=== PATIENT | male | born 1990 | race Caucasian/White ===

== ENCOUNTER 2016-08-02 07:14 | Inpatient (IN) ==
[2016-08-02 07:44] LABS: Bilirubin,Urine Small (Negative); Blood,Urine Negative (Negative); Clarity,Urine Clear (Clear); Color,Urine Dark Yellow (Yellow); Glucose,Urine (UA) Normal (Normal); Ketones,Urine Negative (Negative); Leukocyte Esterase,Urine Negative (Negative); Nitrite,Urine Negative (Negative); PH,Urine 5.5 pH Units (5.0-8.0); Protein,Urine Trace mg/dL (Neg-Trace); Specific Gravity,Urine 1.026 (1.010-1.025); Urobilinogen,Urine Normal (Normal)
[2016-08-02 07:51] LABS: Amphetamine Screen,Urine Negative ng/mL (Cutoff=1000); Barbiturate Screen,Urine Negative ng/mL (Cutoff=200); Benzodiazepines Screen,Urine Negative ng/mL (Cutoff=200); Cannabinoid Screen,Urine Negative ng/mL (Cutoff = 50); Cocaine Screen,Urine Negative ng/mL (Cutoff= 300); Opiate Screen,Urine Negative ng/mL (Cutoff=300); Phencyclidine Screen,Urine Negative ng/mL (Cutoff=25)
[2016-08-02 07:58] LABS: BUN/Creatinine Ratio 14 (6-26); Blood Urea Nitrogen 14 mg/dL (8-26); Calcium 9.2 mg/dL (8.6-10.8); Carbon Dioxide 20 mEq/L (19-29); Chloride 109 mEq/L (98-109); Glucose 141 mg/dL (70-99); Osmolality,Calculated 291 (280-300); Potassium 3.9 mEq/L (3.5-4.5); Sodium 139 mEq/L (136-145); eGFR For African Americans > 60 (> 60); eGFR For Non-African Americans > 60 (> 60)
[2016-08-02 08:01] LABS: Basophils # 0.1 K/mcL (0.0-0.2); Basophils % 0.5 %; Eosinophils # 0.3 K/mcL (0.0-0.6); Hematocrit 46.8 % (37.5-50.1); Hemoglobin 16.4 g/dL (12.9-16.9); Immature Granulocytes % 1.6 % (0-4); Lymphocytes # 2.5 K/mcL (0.6-4.6); Lymphocytes % 27.9 %; Mean Corpuscular Hemoglobin 29.2 pg (28.0-33.3); Mean Corpuscular Volume 83.3 fL (83.0-100.0); Mean Platelet Volume 9.5 fL (9.4-12.4); Monocytes # 0.6 K/mcL (0.0-1.3); Neutrophils # 5.5 K/mcL (1.6-8.9); Platelet Count 256 K/mcL (140-400); Red Blood Count 5.62 M/mcL (4.19-5.50); Red Cell Distribution Width 12.6 % (11.5-14.5)
[2016-08-02 08:02] LABS: Acetaminophen < 1.0 mcg/mL (10-30); Ethanol < 10 mg/dL (0-10); Salicylate < 5.0 mg/dL (15-30)
--- NOTE | 2016-08-02 11:10 | Emergency Department Note ---
Disposition Clinical Impression: Suicidal ideation Depression Qualifiers: Depression Type: unspecified Qualified Code(s): F32.9 - Major depressive disorder, single episode, unspecified Disposition: Admitted As Inpatient Condition: Good Referrals: NO,PCP [Primary Care Provider] - Forms: ED Satisfaction Letter Psych HPI - General Chief Complaint: ED Psychiatric Symptoms Stated Complaint: SI Time Seen by Provider: 08/02/16 07:23 Source: patient Mode of arrival: private vehicle Limitations: no limitations Nursing Notes Reviewed: Yes Vital Signs Reviewed: Yes - History of Present Illness Pt complaint: suicidal ideation, feels depressed Onset (ago): day(s) Duration: constant History of similar episodes: Yes Improves with: none Worsens with: none Context: not taking psychiatric medications, significant life stressor Alleged intoxication: No Associated Psychiatric Symptoms: depression, suicidal ideation Associated symptoms: Reports: denies other symptoms Traumatic symptoms: denies traumatic injury Treatments prior to arrival: none Self harm or harm to others: admits thoughts of self harm, denies having a plan - Related Data Home Medications Medication Instructions Recorded Confirmed ClonazePAM [Klonopin] 2 mg PO BID 06/19/15 08/02/16 Gabapentin [Neurontin] 600 mg PO TID 06/19/15 08/02/16 [place] Carbonate 900 mg PO BID 06/19/15 08/02/16 Omeprazole [PriLOSEC] 20 mg PO BID 08/02/16 08/02/16 Allergies Allergy/AdvReac Type Severity Reaction Status Date / Time No Known Allergies Allergy Verified 08/02/16 07:20 All systems ED: reviewed and negative except as stated. Constitutional: Denies: fever, chills, weakness, weight change, night sweats Eyes: Denies: vision change ENT ED: Denies: throat pain, dysphagia Cardiovascular: Denies: chest pain, palpitations Respiratory: Denies: cough, dyspnea, wheezes Gastrointestinal: Denies: abdominal pain, nausea, vomiting, diarrhea, constipation Musculoskeletal: Denies: joint swelling, arthralgia Integumentary: Denies: rash Neurological: Denies: headache, weakness, numbness, paresthesias, confusion, abnormal gait, vertigo Psychiatric: Reports: as per HPI, depression Endocrine: Denies: fatigue, heat or cold intolerance, polydipsia, polyuria Hematological/Lymphatic: Denies: easy bleeding, easy bruising, lymphadenopathy Past Medical History - Past Medical History Attestation: Yes The following information was validated with the patient. Source: patient Medical history: Reports: no medical history, GERD Psychiatric history: Reports: anxiety, bipolar, depression, previous psychiatric hospitalization - Social History Smoking Status: Current every day smoker Smokeless Tobacco Status: No Alcohol use: Reports: occasionally Drug use: Reports: marijuana Physical Exam - General Limitations: no limitations General appearance: alert, in no apparent distress - Head Head exam: atraumatic, normocephalic, normal inspection - Eye Eye exam: Present: normal appearance, PERRL. Absent: scleral icterus, conjunctival injection, periorbital swelling - ENT ENT exam: mucous membranes moist - Neck Neck exam: Present: normal inspection, full ROM, trachea midline. Absent: meningismus - Chest Chest inspection: Present: normal inspection - Respiratory Respiratory exam: Present: normal lung sounds bilaterally. Absent: respiratory distress, wheezes, stridor, accessory muscle use, prolonged expiratory phase - Cardiovascular Cardiovascular exam: Present: regular rate, normal rhythm, normal heart sounds - Extremities Exam Extremities exam: Present: normal inspection. Absent: pedal edema - Expanded Lower Extremity Exam Gait: observed and normal - Back Exam Back exam: Present: normal inspection - Neurological Exam Neurological exam: Present: alert, oriented X3, CN II-XII intact, normal gait - Psychiatric Psychiatric exam: Present: normal affect, depressed - Skin Skin exam: Present: warm, dry, intact, normal color Course Course Narrative: Patient is depressed and feeling suicidal. He denies trauma, pain or specific plan. He denies HI. He has been off of his medications for about 5 months. He will require 1A consult. Vital Signs Temperature 97.6 F 08/02/16 07:18 Pulse Rate 97 08/02/16 07:18 Respiratory Rate 20 08/02/16 07:18 Blood Pressure 140/90 08/02/16 07:18 O2 Sat by Pulse Oximetry 96 08/02/16 07:18 Temperature 97.6 F 08/02/16 07:18 Pulse Rate 97 08/02/16 07:25 Respiratory Rate 0 08/02/16 11:04 Blood Pressure 0/0 08/02/16 11:04 O2 Sat by Pulse Oximetry 96 08/02/16 07:25 Oxygen Delivery Oxygen Delivery Room Air Psych - Lab Data Result diagrams: 08/02/16 07:35 03/03/17 07:35 Lab Results 08/02/16 08/02/16 08/02/16 Range/Units 07:24 07:25 07:35 WBC 9.1 (4.3-11.1) K/mcL RBC 5.62 H (4.19-5.50) M/mcL Hgb 16.4 (12.9-16.9) g/dL Hct 46.8 (37.5-50.1) % MCV 83.3 (83.0-100.0) fL MCH 29.2 (28.0-33.3) pg MCHC 35.0 (31.6-35.5) g/dL RDW 12.6 (11.5-14.5) % Plt Count 256 (140-400) K/mcL MPV 9.5 (9.4-12.4) fL Immature Gran % 1.6 (0-4) % Seg Neutrophils % 60.0 % Lymphocytes % 27.9 % Monocytes % 7.0 % Eosinophils % 3.0 % Basophils % 0.5 % Neutrophils # 5.5 (1.6-8.9) K/mcL Lymphocytes # 2.5 (0.6-4.6) K/mcL Monocytes # 0.6 (0.0-1.3) K/mcL Eosinophils # 0.3 (0.0-0.6) K/mcL Basophils # 0.1 (0.0-0.2) K/mcL Sodium (136-145) mEq/L Potassium (3.5-4.5) mEq/L Chloride (98-109) mEq/L Carbon Dioxide (19-29) mEq/L BUN (8-26) mg/dL Creatinine (0.72-1.25) mg/dL Est GFR ( Amer) (> 60) Est GFR (Non-Af Amer) (> 60) BUN/Creatinine Ratio (6-26) Glucose (70-99) mg/dL Calculated Osmolality (280-300) Calcium (8.6-10.8) mg/dL Urine Color Dark Yellow (Yellow) Urine Clarity Clear (Clear) Urine pH 5.5 (5.0-8.0) pH Units Ur Specific [place] 1.026 H (1.010-1.025) Urine Protein Trace (Neg-Trace) mg/dL Urine Glucose (UA) Normal (Normal) mg/dL Urine Ketones Negative (Negative) mg/dL Urine Blood Negative (Negative) Urine Nitrite Negative (Negative) Urine Bilirubin Small H (Negative) Urine Urobilinogen Normal (Normal) mg/dL Ur Leukocyte Esterase Negative (Negative) Salicylates (15-30) mg/dL Urine Opiates Screen Negative (Jzvcbd=838) ng/mL Acetaminophen (10-30) mcg/mL Ur Barbiturates Screen Negative (Uluzfb=656) ng/mL Ur Phencyclidine Scrn Negative (Cutoff=25) ng/mL Ur Amphetamines Screen Negative (Sbbqau=4226) ng/mL U Benzodiazepines Scrn Negative (Augcqm=976) ng/mL Urine Cocaine Screen Negative (Cutoff= 300) ng/mL U Marijuana (THC) Screen Negative (Cutoff = 50) ng/mL Ethyl Alcohol (0-10) mg/dL 08/02/16 Range/Units 07:35 WBC (4.3-11.1) K/mcL RBC (4.19-5.50) M/mcL Hgb (12.9-16.9) g/dL Hct (37.5-50.1) % MCV (83.0-100.0) fL MCH (28.0-33.3) pg MCHC (31.6-35.5) g/dL RDW (11.5-14.5) % Plt Count (140-400) K/mcL MPV (9.4-12.4) fL Immature Gran % (0-4) % Seg Neutrophils % % Lymphocytes % % Monocytes % % Eosinophils % % Basophils % % Neutrophils # (1.6-8.9) K/mcL Lymphocytes # (0.6-4.6) K/mcL Monocytes # (0.0-1.3) K/mcL Eosinophils # (0.0-0.6) K/mcL Basophils # (0.0-0.2) K/mcL Sodium 139 (136-145) mEq/L Potassium 3.9 (3.5-4.5) mEq/L Chloride 109 (98-109) mEq/L Carbon Dioxide 20 (19-29) mEq/L BUN 14 (8-26) mg/dL Creatinine 0.98 (0.72-1.25) mg/dL Est GFR ( Amer) > 60 (> 60) Est GFR (Non-Af Amer) > 60 (> 60) BUN/Creatinine Ratio 14 (6-26) Glucose 141 H (70-99) mg/dL Calculated Osmolality 291 (280-300) Calcium 9.2 (8.6-10.8) mg/dL Urine Color (Yellow) Urine Clarity (Clear) Urine pH (5.0-8.0) pH Units Ur Specific [place] (1.010-1.025) Urine Protein (Neg-Trace) mg/dL Urine Glucose (UA) (Normal) mg/dL Urine Ketones (Negative) mg/dL Urine Blood (Negative) Urine Nitrite (Negative) Urine Bilirubin (Negative) Urine Urobilinogen (Normal) mg/dL Ur Leukocyte Esterase (Negative) Salicylates < 5.0 L (15-30) mg/dL Urine Opiates Screen (Fzqyot=205) ng/mL Acetaminophen < 1.0 L (10-30) mcg/mL Ur Barbiturates Screen (Eyhnuz=028) ng/mL Ur Phencyclidine Scrn (Cutoff=25) ng/mL Ur Amphetamines Screen (Bclzyy=7739) ng/mL U Benzodiazepines Scrn (Tdkksr=037) ng/mL Urine Cocaine Screen (Cutoff= 300) ng/mL U Marijuana (THC) Screen (Cutoff = 50) ng/mL Ethyl Alcohol < 10 (0-10) mg/dL Psychiatric Medical Clearance - Medical Clearance Checklist Does the patient have a NEW psychiatric condition?: No Any abnormalities indicating possible medical illness?: No Any history of medical issues?: No Medical History: No Social History Section defined Any abnormal vital signs prior to transfer?: No Current Vitals: Last Vital Signs Temp 97.6 F 08/02/16 07:18 Pulse 97 08/02/16 07:25 Resp 0 08/02/16 11:04 BP 0/0 08/02/16 11:04 Pulse Ox 96 08/02/16 07:25 Is the patient intoxicated or cognitively impaired?: No Psychiatric Lab Panel: Drug Levels and Toxicity 08/02/16 08/02/16 07:24 07:35 Urine Opiates Screen Negative Acetaminophen < 1.0 L Ur Barbiturates Screen Negative Ur Phencyclidine Scrn Negative Ur Amphetamines Screen Negative U Benzodiazepines Scrn Negative Urine Cocaine Screen Negative U Marijuana (THC) Screen Negative Ethyl Alcohol < 10 Any abnormalities on the physical exam?: No Abnormal Labs: Abnormal lab results RBC 5.62 M/mcL (4.19-5.50) H 08/02/16 07:35 Glucose 141 mg/dL (70-99) H 08/02/16 07:35 Ur Specific [place] 1.026 (1.010-1.025) H 08/02/16 07:25 Urine Bilirubin Small (Negative) H 08/02/16 07:25 Salicylates < 5.0 mg/dL (15-30) L 08/02/16 07:35 Acetaminophen < 1.0 mcg/mL (10-30) L 08/02/16 07:35 Does the patient require durable medical equiptment?: No Is the patient ambulatory?: Yes Is the patient a fall risk?: No Has the patient been medically cleared?: Yes Any acute medical condition require Tx prior to transfer?: No Statement of Medical Clearance: I have evaluated the patient, reviewed diagnostic information, and certify that the patient's medical condition is sufficiently stable that transfer to the psychiatric unit does not pose a significant risk of deterioration.
[2016-08-02] MEDS ORDERED: *HR* LORazepam 2 MG/ML VIAL IM PRN (15:59)
[2016-08-02] MEDS ORDERED: Mag Hydrox/Al Hydrox/Simeth 30 ML UDC PO PRN (15:59)
[2016-08-02] MEDS ORDERED: Acetaminophen 325 MG TABLET PO PRN (15:59)
[2016-08-02] MEDS ORDERED: MOM Conc 10 ML UD.LIQ PO PRN (15:59)
[2016-08-02] MEDS ORDERED: *HR* LORazepam 1 MG TABLET PO PRN (15:59)
[2016-08-02] MEDS: Ibuprofen 400 MG TABLET PO PRN (17:42)
[2016-08-02] MEDS: Nicotine 2 MG GUM BC PRN ×2 (17:45→20:14)
[2016-08-02] MEDS: traZODone 50 MG TABLET PO PRN (21:03)
[2016-08-02] MEDS: hydrOXYzine pamoate 25 MG CAPSULE PO PRN (21:03)
[2016-08-03] MEDS: Nicotine 2 MG GUM BC PRN ×4 (09:59→21:39)
--- NOTE | 2016-08-03 12:39 | Psychiatry History & Physical ---
Date of Encounter: 08/03/16 Time of Encounter: 12:20 History of Present Illness Patient Stated Chief Complaint: I am depressed and suicidal Medicare Admission Attestation: For traditional Medicare patients the provided hospital inpatient services are reasonable and necessary and in the case of services not specified as inpatient -only under 42 CFR 419.22 (n), that they are appropriately provided as inpatient services in accordance 42 CFR 412.3. For Critical Access Hospital the patient may reasonably be expected to be discharged or transferred to a hospital within 96 hours after admission to the Critical Access Hospital. Admitted From: Emergency Dept Plans for Post Hospital Care: Home History of Present Illness: Mr. Fontenot is a 26 year old male Was referred for hospitalization for depression and suicidal ideations. Patient is noted to have an extensive history of mental illness. He is diagnosed with bipolar disorder type I. Patient reported that he has been off his medications for 5 months since his outpatient psychiatrist had relocated and he has not been able to see a new psychiatrist. Patient reported that he ran out of his medications because of inability to see a psychiatrist and has been noticing a relapse of his depression for the last few months. He reported that his symptoms of depression and anxiety getting worse over the last few weeks. He reported low mood and anhedonia hopelessness helplessness low energy levels anxiety and nervousness restlessness poor sleep and appetite and recurrent suicidal thoughts and ideations. Patient reported that his depressive and anxiety feelings are getting worse to the point where he has been contemplating on ending his life. He was unable to contract for safety and was posing a threat to himself so it was decided to hospitalize him on a psychiatric unit at [facility] Social Fam HX - Past Medical History Medical history: no medical history, GERD - Past Psychiatric History Psychiatric history: Reports: bipolar, previous psychiatric hospitalization Past psychiatric history details: Patient has extensive history of bipolar disorder. He has had multiple prior psychiatric hospitalizations. His last hospitalization was in January 2016 at [place]. He was receiving outpatient treatment from [facility]. He was fairly stable on lithium and Neurontin and Klonopin. Family psychiatric history: Yes Family Psychiatric History Details: Aunt suffers from bipolar disorder Family History of Suicide: None - Social History Smoking Status: Current every day smoker Smokeless Tobacco Status: No Alcohol use: occasionally Drug use: marijuana Occupational status: unemployed Current living situation: Home, With Family Activity Level: Independent ambulation Recent Out of Country Travel Within the Last 8 Weeks: No Exposure or Possible Exposure to Illness During Travel: No Additional social history: Patient was born and raised in [place]. He reported good childhood. He has one sister. He graduated high school. He is single and has no children currently he is unemployed and residing with parents. He denies any legal issues. Medications & Allergies ClonazePAM [Klonopin] 2 mg PO BID 06/19/15 [History] Gabapentin [Neurontin] 600 mg PO TID 06/19/15 [History] [place] Carbonate 900 mg PO BID 06/19/15 [History] Omeprazole [PriLOSEC] 20 mg PO BID 08/02/16 [History] Allergies No Known Allergies Allergy (Verified 08/02/16 07:20) Review of Systems Psychiatric: Reports: depression, anxiety, abnormal sleep pattern, suicidal ideation, anhedonia, hopelessness, panic attacks Mental Status Exam Patient orientation: Yes Person, Yes Time, Yes Place Level of alertness: Alert Patient appearance: Unkempt, Disheveled Behavior: calm, cooperative Psychomotor activity: Normal Eye contact: Maintains Eye Contact Mood description: Depressed, Anxious Affect description: congruent with mood, constricted, dysphoric, anxious Speech pattern: Normal rate, Normal rhythm, Normal tone Speech volume: Soft/Quiet Thought process: Intact, Linear, Goal Oriented Thought content: Yes Suicidal ideation Perceptual disturbances: No Auditory hallucinations, No Visual hallucinations Attention span: Capable of Focused Attention Memory description: Grossly Intact Patient reliability: Reliable Historian Intelligence estimate: Average Judgment: Fair Insight: Partial Results - Vital Signs Vital signs: Temp Pulse Resp BP Pulse Ox 97.3 F L 78 18 115/79 100 08/03/16 09:00 08/03/16 09:00 08/03/16 09:00 08/03/16 09:00 08/02/16 11:10 - Labs Labs: Laboratory Last Values WBC 9.1 K/mcL (4.3-11.1) 08/02/16 07:35 RBC 5.62 M/mcL (4.19-5.50) H 08/02/16 07:35 Hgb 16.4 g/dL (12.9-16.9) 08/02/16 07:35 Hct 46.8 % (37.5-50.1) 08/02/16 07:35 MCV 83.3 fL (83.0-100.0) 08/02/16 07:35 MCH 29.2 pg (28.0-33.3) 08/02/16 07:35 MCHC 35.0 g/dL (31.6-35.5) 08/02/16 07:35 RDW 12.6 % (11.5-14.5) 08/02/16 07:35 Plt Count 256 K/mcL (140-400) 08/02/16 07:35 MPV 9.5 fL (9.4-12.4) 08/02/16 07:35 Immature Gran % 1.6 % (0-4) 08/02/16 07:35 Seg Neutrophils % 60.0 % 08/02/16 07:35 Lymphocytes % 27.9 % 08/02/16 07:35 Monocytes % 7.0 % 08/02/16 07:35 Eosinophils % 3.0 % 08/02/16 07:35 Basophils % 0.5 % 08/02/16 07:35 Neutrophils # 5.5 K/mcL (1.6-8.9) 08/02/16 07:35 Lymphocytes # 2.5 K/mcL (0.6-4.6) 08/02/16 07:35 Monocytes # 0.6 K/mcL (0.0-1.3) 08/02/16 07:35 Eosinophils # 0.3 K/mcL (0.0-0.6) 08/02/16 07:35 Basophils # 0.1 K/mcL (0.0-0.2) 08/02/16 07:35 Sodium 139 mEq/L (136-145) 08/02/16 07:35 Potassium 3.9 mEq/L (3.5-4.5) 08/02/16 07:35 Chloride 109 mEq/L (98-109) 08/02/16 07:35 Carbon Dioxide 20 mEq/L (19-29) 08/02/16 07:35 BUN 14 mg/dL (8-26) 08/02/16 07:35 Creatinine 0.98 mg/dL (0.72-1.25) 08/02/16 07:35 Est GFR ( Amer) > 60 (> 60) 08/02/16 07:35 Est GFR (Non-Af Amer) > 60 (> 60) 08/02/16 07:35 BUN/Creatinine Ratio 14 (6-26) 08/02/16 07:35 Glucose 141 mg/dL (70-99) H 08/02/16 07:35 Calculated Osmolality 291 (280-300) 08/02/16 07:35 Calcium 9.2 mg/dL (8.6-10.8) 08/02/16 07:35 Urine Color Dark Yellow (Yellow) 08/02/16 07:25 Urine Clarity Clear (Clear) 08/02/16 07:25 Urine pH 5.5 pH Units (5.0-8.0) 08/02/16 07:25 Ur Specific [place] 1.026 (1.010-1.025) H 08/02/16 07:25 Urine Protein Trace mg/dL (Neg-Trace) 08/02/16 07:25 Urine Glucose (UA) Normal mg/dL (Normal) 08/02/16 07:25 Urine Ketones Negative mg/dL (Negative) 08/02/16 07:25 Urine Blood Negative (Negative) 08/02/16 07:25 Urine Nitrite Negative (Negative) 08/02/16 07:25 Urine Bilirubin Small (Negative) H 08/02/16 07:25 Urine Urobilinogen Normal mg/dL (Normal) 08/02/16 07:25 Ur Leukocyte Esterase Negative (Negative) 08/02/16 07:25 Salicylates < 5.0 mg/dL (15-30) L 08/02/16 07:35 Urine Opiates Screen Negative ng/mL (Zehhhr=406) 08/02/16 07:24 Acetaminophen < 1.0 mcg/mL (10-30) L 08/02/16 07:35 Ur Barbiturates Screen Negative ng/mL (Veelvv=625) 08/02/16 07:24 Ur Phencyclidine Scrn Negative ng/mL (Cutoff=25) 08/02/16 07:24 Ur Amphetamines Screen Negative ng/mL (Mjzccr=1658) 08/02/16 07:24 U Benzodiazepines Scrn Negative ng/mL (Hfbuen=851) 08/02/16 07:24 Urine Cocaine Screen Negative ng/mL (Cutoff= 300) 08/02/16 07:24 U Marijuana (THC) Screen Negative ng/mL (Cutoff = 50) 08/02/16 07:24 Ethyl Alcohol < 10 mg/dL (0-10) 08/02/16 07:35 Assessment and Plan (1) Bipolar disorder Current visit: Yes Status: Acute Plan: Admit inpatient for safety and stabilization, Close observation, Suicide Precautions per unit protocol, Encourage participation in unit milieu, Group Therapy, Monitor sleep, Monitor appetite Additional Plan: We will restart the patient's lithium on 600 mg twice a day. We will get a lithium level and adjust the dose accordingly. We will also start the patient on Neurontin 400 mg 3 times a day. We will also start the patient on Klonopin but instead of 2 mg twice a day we will start the patient on 0.5 mg daily. Patient was counseled regarding the side effects and the addictive potential of Klonopin patient is understanding and agreeable with the above medications. Plans for Post Hospital Care: Home Estimated Length of Stay (Days): 3 Qualifiers: Active/Remission status: currently active Current bipolar episode type: depressed Current episode severity: severe Psychotic features: without psychotic features Qualified Code(s): F31.4 - Bipolar disorder, current episode depressed, severe, without psychotic features
[2016-08-03] MEDS: clonazePAM 0.5 MG TABLET PO SCH (13:09)
[2016-08-03] MEDS: Gabapentin 400 MG CAPSULE PO SCH ×2 (14:48→21:38)
[2016-08-03] MEDS: Lithium Carbonate 300 MG CAPSULE PO SCH (21:38)
[2016-08-03] MEDS: traZODone 50 MG TABLET PO PRN (21:38)
[2016-08-04] MEDS: clonazePAM 0.5 MG TABLET PO SCH (08:53)
[2016-08-04] MEDS: Gabapentin 400 MG CAPSULE PO SCH (08:53)
[2016-08-04] MEDS: Lithium Carbonate 300 MG CAPSULE PO SCH ×2 (08:53→20:26)
[2016-08-04] MEDS: Nicotine 2 MG GUM BC PRN ×4 (08:54→18:43)
--- NOTE | 2016-08-04 11:50 | Psychiatry Progress Note ---
Date of Encounter: 08/04/16 Time of Encounter: 11:17 Subjective Interval history: Patient seen and interviewed. Started notice slight improvement in his mood. Suicidal ideations have started to subside. Patient is still endorsing anxiety restlessness and nervousness. He slept better. Tolerating medication changes fairly well. Endorsing tremor shakes palpitations and excessive worrying. Patient is active on the unit and been attending groups and participating in activities. And is encouraged to start working on a safety plan. Review of Systems Psychiatric: Reports: depression, anxiety, abnormal sleep pattern, anhedonia, hopelessness, panic attacks Objective: Exam Patient orientation: Yes Person, Yes Time, Yes Place Level of alertness: Alert Patient appearance: Unkempt, Disheveled Behavior: calm, cooperative Psychomotor activity: Normal Eye contact: Maintains Eye Contact Mood description: Anxious Affect description: congruent with mood, constricted, dysphoric, anxious Speech pattern: Normal rate, Normal rhythm, Normal tone Speech volume: Soft/Quiet Thought process: Intact, Linear, Goal Oriented Thought content: No Suicidal ideation Perceptual disturbances: No Auditory hallucinations, No Visual hallucinations Judgment: Fair Insight: Partial Additional Findings: Endorsing hopelessness and helplessness feelings. Does not have a safety plan. Results - Vital Signs Vital Signs: Temp Pulse Resp BP Pulse Ox 97.4 F L 90 16 111/79 100 08/04/16 09:00 08/04/16 09:00 08/04/16 09:00 08/04/16 09:00 08/02/16 11:10 Assessment and Plan (1) Bipolar disorder Current visit: Yes Status: Acute Plan: Continue hospitalization, Close observation, Suicide Precautions per unit protocol, Encourage participation in unit milieu, Group Therapy, Monitor sleep, Monitor appetite Additional Plan: We will increase Klonopin 1 mg daily. Will check lithium level Friday morning. We will increase the Neurontin. Qualifiers: Active/Remission status: currently active Current bipolar episode type: depressed Current episode severity: severe Psychotic features: without psychotic features Qualified Code(s): F31.4 - Bipolar disorder, current episode depressed, severe, without psychotic features Consult Discharge Plan - Plan Referrals: [facility] [Outside] - 08/07/16 11:00 am (The above appointment is with Anat Gordillo. You will also see Viky Lieberman on 08/30/2016 @ 10:00am.)
[2016-08-04] MEDS: Gabapentin 300 MG CAPSULE PO SCH ×2 (14:52→20:26)
[2016-08-04] MEDS: traZODone 50 MG TABLET PO PRN (20:26)
[2016-08-05] MEDS: clonazePAM 0.5 MG TABLET PO SCH (09:09)
[2016-08-05] MEDS: Nicotine 2 MG GUM BC PRN ×4 (09:10→19:23)
[2016-08-05] MEDS: Gabapentin 300 MG CAPSULE PO SCH ×3 (09:10→20:34)
[2016-08-05] MEDS: Lithium Carbonate 300 MG CAPSULE PO SCH ×2 (09:48→20:35)
--- NOTE | 2016-08-05 14:06 | Psychiatry Progress Note ---
Date of Encounter: 08/05/16 Time of Encounter: 14:03 Subjective Interval history: Patient seen for follow-up. He reports his sleep still an adequate and continued to have occasional anxiety. Otherwise he asked me to increase his gabapentin if possible and use trazodone. Denied any hallucination or suicidal ideation and is compliant with medication and activities. Review of Systems Psychiatric: Reports: depression, anxiety, abnormal sleep pattern, anhedonia, panic attacks Objective: Exam Patient orientation: Yes Person, Yes Time, Yes Place Level of alertness: Alert Patient appearance: Appropriate, Well Groomed Behavior: calm, cooperative Psychomotor activity: Normal Eye contact: Maintains Eye Contact Mood description: Anxious Affect description: congruent with mood, constricted, dysphoric, anxious Speech pattern: Normal rate, Normal rhythm, Normal tone Speech volume: Soft/Quiet Thought process: Intact, Linear, Goal Oriented Thought content: No Suicidal ideation Perceptual disturbances: No Auditory hallucinations, No Visual hallucinations Judgment: Fair Insight: Partial Results - Vital Signs Vital Signs: Temp Pulse Resp BP Pulse Ox 97.2 F L 94 18 116/88 100 08/05/16 08:54 08/05/16 08:54 08/05/16 08:54 08/05/16 08:54 08/02/16 11:10 - Drug Levels and Toxicology Drug Levels and Toxicology: Drug Levels and Toxicity 08/05/16 09:06 [place] 0.3 L - Labs Labs: Laboratory Results - last 24 hr 08/05/16 09:06 [place] 0.3 L Assessment and Plan (1) Bipolar disorder Current visit: Yes Status: Acute Plan: Continue hospitalization, Close observation, Suicide Precautions per unit protocol, Encourage participation in unit milieu, Group Therapy, Monitor sleep, Monitor appetite Additional Plan: We will increase trazodone to 100 mg at bedtime and increase gabapentin to 900 mg 3 times daily. Discussed with patient medication changes and he is agreeable and understand benefits and side effects. Qualifiers: Active/Remission status: currently active Current bipolar episode type: depressed Current episode severity: severe Psychotic features: without psychotic features Qualified Code(s): F31.4 - Bipolar disorder, current episode depressed, severe, without psychotic features Consult Discharge Plan - Plan Referrals: [facility] [Outside] - 08/07/16 11:00 am (The above appointment is with Anat Gordillo. You will also see Viky Lieberman on 08/30/2016 @ 10:00am.)
[2016-08-05] MEDS ORDERED: traZODone 50 MG TABLET PO PRN (14:14)
[2016-08-05] MEDS: hydrOXYzine pamoate 25 MG CAPSULE PO PRN ×2 (14:15→18:39)
[2016-08-05] MEDS: Ibuprofen 400 MG TABLET PO PRN (20:02)
[2016-08-06] MEDS: Nicotine 2 MG GUM BC PRN ×2 (05:28→09:51)
[2016-08-06] MEDS: Gabapentin 300 MG CAPSULE PO SCH (08:35)
[2016-08-06] MEDS: Lithium Carbonate 300 MG CAPSULE PO SCH (08:36)
[2016-08-06] MEDS: clonazePAM 0.5 MG TABLET PO SCH (08:37)
[2016-08-06 08:51] VITALS: BP 110/78
[2016-08-06] MEDS: hydrOXYzine pamoate 25 MG CAPSULE PO PRN (10:00)
--- NOTE | 2016-08-06 11:22 | Discharge Summary ---
Date of Encounter: 08/06/16 Time of Encounter: 11:09 Diagnosis - Discharge Diagnosis (1) Bipolar disorder Status: Acute Qualifiers: Active/Remission status: currently active Current bipolar episode type: depressed Current episode severity: severe Psychotic features: without psychotic features Qualified Code(s): F31.4 - Bipolar disorder, current episode depressed, severe, without psychotic features Medications - Discharge Medications Prescriptions: ClonazePAM [Klonopin] 1 mg PO DAILY #30 tablet Gabapentin [Neurontin] 900 mg PO TID #90 capsule HydrOXYzine Pamoate 25 mg PO TID PRN #60 capsule PRN Reason: Anxiety [place] Carbonate 600 mg PO BID #60 capsule TraZODone 100 mg PO HS PRN #60 tablet PRN Reason: Insomnia Omeprazole [PriLOSEC] 20 mg PO BID 08/02/16 [History] ClonazePAM [Klonopin] 1 mg PO DAILY #30 tablet 08/06/16 [Rx] Gabapentin [Neurontin] 900 mg PO TID #90 capsule 08/06/16 [Rx] HydrOXYzine Pamoate 25 mg PO TID PRN #60 capsule 08/06/16 [Rx] [place] Carbonate 600 mg PO BID #60 capsule 08/06/16 [Rx] TraZODone 100 mg PO HS PRN #60 tablet 08/06/16 [Rx] Allergies No Known Allergies Allergy (Verified 08/02/16 07:20) Results Procedures and tests throughout hospitalization: Completed Lab Orders Category Date Time Status [place] Routine Lab 08/05/16 09:06 Completed Provider Date of admission: 08/02/16 10:50 Primary care physician: PCP NO Discharging clinician: Pastor Peguero Assessment and Plan - Patient/Caregiver Discharge Instructions Activity: resume usual activities as tolerated Diet: regular diet - Follow up Plan Follow up with: [facility] [Outside] - 08/07/16 11:00 am (The above appointment is with Anat Gordillo. You will also see Viky Lieberman on 08/30/2016 @ 10:00am.) Functional capacity at discharge: independent ambulation Overall status at discharge: Stable Disposition: Home, Self-Care Hospital Course Hospital course: Mr. Fontenot is a 26 year old male admitted for evaluation treatment bipolar disorder and depression and patient was noncompliant with his medication for several months prior to admission. For details of the admission please see H&P On the units patient medication will be started including lithium and gabapentin and Klonopin. The respondent well to medication for his lithium level was 0.3 which is subtherapeutic . Prior to discharge patient was medically stable, tolerating medications, denied any suicidal ideation. He participated in groups and activities and he was looking forward to her discharge from follow-up as planned. - Time Spent with Patient Total time spent providing and/or coordinating discharge services: Less than 30 minutes Quality - Multiple Antipsychotics Patient discharged on 2 or more antipsychotic medications: No Procedures - Procedures Procedures: Medication Management, Crisis Stabilization, Supportive Therapy, Group Therapy, Psychoeducational Therapy Mental Status Exam - Mental Status Exam Patient orientation: Yes Person, Yes Time, Yes Place Level of alertness: Alert Patient appearance: Appropriate, Well Groomed Behavior: calm, cooperative Psychomotor activity: Normal Eye contact: Maintains Eye Contact Mood description: Anxious Affect description: congruent with mood, constricted, dysphoric, anxious Speech pattern: Normal rate, Normal rhythm, Normal tone Speech Volume: Soft/Quiet Thought process: Intact, Linear, Goal Oriented Thought Content: No Suicidal ideation Perceptual Disturbances: No Auditory hallucinations, No Visual hallucinations Judgment: Fair Insight: Partial
[2016-08-06] MEDS ORDERED: FLU VACC QS2016-17 36MOS UP/PF 0.5 ML SYRINGE IM ONE (11:52)
== END 2016-08-06 12:35 | disposition home or self-care (01) | DRG 753 ==
LOC: EMEROO 07:14 → SUATTDRO 10:50 → 1ANU 10:50
PROVIDERS: ADMIT Psychiatry & Neurology Psychiatry; ATTEND Psychiatry & Neurology Psychiatry

== ENCOUNTER 2019-04-18 22:19 | Inpatient (IN) ==
[2019-04-18] MEDS ORDERED: *HR* LORazepam 1 MG TABLET PO ONE (22:47)
[2019-04-18 23:05] LABS: Basophils # 0.1 K/mcL (0.0-0.2); Basophils % 0.4 %; Eosinophils # 0.3 K/mcL (0.0-0.6); Eosinophils % 2.1 %; Hematocrit 50.4 % (37.5-50.1); Hemoglobin 17.9 g/dL (12.9-16.9); Immature Granulocytes % 0.6 % (0-4); Lymphocytes # 2.1 K/mcL (0.6-4.6); Lymphocytes % 16.7 %; Mean Corpuscular HGB Conc 35.5 g/dL (31.6-35.5); Mean Corpuscular Hemoglobin 30.8 pg (28.0-33.3); Mean Corpuscular Volume 86.6 fL (83.0-100.0); Mean Platelet Volume 9.6 fL (9.4-12.4); Monocytes # 0.8 K/mcL (0.0-1.3); Neutrophils # 9.5 K/mcL (1.6-8.9); Platelet Count 293 K/mcL (140-400); Red Blood Count 5.82 M/mcL (4.19-5.50); Red Cell Distribution Width 12.9 % (11.5-14.5); Segmented Neutrophils % 74.2 %; White Blood Count 12.8 K/mcL (4.3-11.1)
[2019-04-18 23:07] LABS: Bilirubin,Urine Small (Negative); Blood,Urine Negative (Negative); Clarity,Urine Cloudy (Clear); Color,Urine Dark Yellow (Yellow); Glucose,Urine (UA) Normal (Normal); Ketones,Urine Trace mg/dL (Negative); Leukocyte Esterase,Urine Negative (Negative); Nitrite,Urine Negative (Negative); PH,Urine 5.5 pH Units (5.0-8.0); Protein,Urine Trace mg/dL (Neg-Trace); Urobilinogen,Urine Normal (Normal)
[2019-04-18 23:09] LABS: Bacteria,Urine None Seen per hpf (None-Few); Hyaline Casts,Urine None Seen per lpf (None-Few); Squamous Epithelial Cell,Urine Many per lpf (None-Few)
[2019-04-18 23:30] LABS: Acetaminophen < 10 mcg/mL (10-20); Alanine Aminotransferase 25 Units/L (7-52); Albumin 4.6 g/dL (3.5-5.7); Albumin/Globulin Ratio 1.4 (1.1-2.2); Alkaline Phosphatase 80 Units/L (34-104); Aspartate Amino Transferase 18 Units/L (13-39); BUN/Creatinine Ratio 19 (6-26); Bilirubin,Direct 0.1 mg/dL (0.0-0.2); Bilirubin,Indirect 0.5 mg/dL (0.0-1.0); Bilirubin,Total 0.6 mg/dL (0.3-1.0); Blood Urea Nitrogen 14 mg/dL (6-20); Carbon Dioxide 19 mEq/L (23-29); Chloride 107 mEq/L (98-107); Ethanol < 10 mg/dL (Less than 10); Globulin 3.2 g/dL (2.4-3.5); Glucose 105 mg/dL (70-105); Osmolality,Calculated 283 (280-300); Potassium 3.8 mEq/L (3.5-5.1); Salicylate < 2.5 mg/dL (15.0-30.0); Sodium 136 mEq/L (136-145); Total Protein 7.8 g/dL (6.4-8.9); eGFR For African Americans > 60 (> 60); eGFR For Non-African Americans > 60 (> 60)
[2019-04-18 23:33] LABS: Amphetamine Screen,Urine Negative ng/mL (Cutoff=1000); Barbiturate Screen,Urine Negative ng/mL (Cutoff=200); Benzodiazepines Screen,Urine Negative ng/mL (Cutoff=200); Cannabinoid Screen,Urine Negative ng/mL (Cutoff = 50); Cocaine Screen,Urine Negative ng/mL (Cutoff= 300); Opiate Screen,Urine Negative ng/mL (Cutoff=300); Phencyclidine Screen,Urine Negative ng/mL (Cutoff=25)
[2019-04-18 23:42] LABS: Thyroid Stimulating Hormone 0.911 mcIU/mL (0.340-5.600)
[2019-04-19] MEDS ORDERED: *HR* LORazepam 2 MG/ML VIAL IM PRN (02:06)
[2019-04-19] MEDS ORDERED: Mag Hydrox/Al Hydrox/Simeth 30 ML UDC PO PRN (02:06)
[2019-04-19] MEDS ORDERED: Ibuprofen 400 MG TABLET PO PRN (02:06)
[2019-04-19] MEDS ORDERED: *HR* LORazepam 1 MG TABLET PO PRN (02:06)
[2019-04-19] MEDS ORDERED: traZODone 50 MG TABLET PO PRN (02:06)
[2019-04-19] MEDS ORDERED: MOM Conc 10 ML UD.LIQ PO PRN (02:06)
[2019-04-19] MEDS ORDERED: Haloperidol Lactate 5 MG/ML VIAL IM PRN (02:06)
[2019-04-19] MEDS: hydrOXYzine pamoate 25 MG CAPSULE PO PRN ×3 (02:36→20:54)
[2019-04-19] MEDS: Lithium Carbonate 300 MG CAPSULE PO SCH ×2 (12:11→16:50)
[2019-04-19] MEDS: Nicotine 2 MG GUM BC PRN ×2 (12:12→17:40)
[2019-04-20] MEDS: Nicotine 2 MG GUM BC PRN ×2 (08:59→14:59)
[2019-04-20] MEDS: Lithium Carbonate 300 MG CAPSULE PO SCH ×2 (08:59→17:53)
[2019-04-21 08:43] VITALS: BP 119/83
[2019-04-21] MEDS: Lithium Carbonate 300 MG CAPSULE PO SCH (08:46)
[2019-04-21] MEDS: Nicotine 2 MG GUM BC PRN (08:48)
[2019-04-21] MEDS ORDERED: FLU Vac QV 19-20 (6Month+)/PF 0.5 ML SYRINGE IM ONE (09:29)
== END 2019-04-21 11:10 | disposition home or self-care (01) | DRG 885 ==
LOC: EMEROOARM 22:19 → 1ANU 04-19 01:38
PROVIDERS: ADMIT Psychiatry & Neurology Psychiatry; ATTEND Psychiatry & Neurology Psychiatry

== ENCOUNTER 2019-07-07 02:10 | Inpatient (IN) ==
[2019-07-07 02:53] LABS: Bilirubin,Urine Negative (Negative); Blood,Urine Negative (Negative); Clarity,Urine Clear (Clear); Color,Urine Yellow (Yellow); Glucose,Urine (UA) Normal (Normal); Ketones,Urine Negative (Negative); Leukocyte Esterase,Urine Negative (Negative); Nitrite,Urine Negative (Negative); PH,Urine 6.5 pH Units (5.0-8.0); Protein,Urine Negative (Neg-Trace); Specific Gravity,Urine 1.029 (1.010-1.025); Urobilinogen,Urine Normal (Normal)
[2019-07-07 02:54] LABS: Basophils # 0.1 K/mcL (0.0-0.2); Basophils % 0.6 %; Eosinophils # 0.3 K/mcL (0.0-0.6); Hematocrit 46.9 % (37.5-50.1); Hemoglobin 16.1 g/dL (12.9-16.9); Immature Granulocytes % 1.2 % (0-4); Lymphocytes # 3.4 K/mcL (0.6-4.6); Lymphocytes % 32.2 %; Mean Corpuscular HGB Conc 34.3 g/dL (31.6-35.5); Mean Corpuscular Hemoglobin 29.4 pg (28.0-33.3); Mean Corpuscular Volume 85.7 fL (83.0-100.0); Mean Platelet Volume 9.3 fL (9.4-12.4); Monocytes # 0.6 K/mcL (0.0-1.3); Monocytes % 5.4 %; Neutrophils # 6.1 K/mcL (1.6-8.9); Platelet Count 303 K/mcL (140-400); Red Blood Count 5.47 M/mcL (4.19-5.50); Red Cell Distribution Width 13.1 % (11.5-14.5); Segmented Neutrophils % 57.6 %; White Blood Count 10.6 K/mcL (4.3-11.1)
[2019-07-07 03:03] LABS: Amphetamine Screen,Urine Negative ng/mL (Cutoff=1000); Barbiturate Screen,Urine Negative ng/mL (Cutoff=200); Benzodiazepines Screen,Urine Negative ng/mL (Cutoff=200); Cannabinoid Screen,Urine Negative ng/mL (Cutoff = 50); Cocaine Screen,Urine Negative ng/mL (Cutoff= 300); Opiate Screen,Urine Negative ng/mL (Cutoff=300); Phencyclidine Screen,Urine Negative ng/mL (Cutoff=25)
[2019-07-07 03:13] LABS: Acetaminophen < 10 mcg/mL (10-20); BUN/Creatinine Ratio 33 (6-26); Blood Urea Nitrogen 22 mg/dL (6-20); Calcium 9.8 mg/dL (8.6-10.3); Carbon Dioxide 21 mEq/L (23-29); Chloride 108 mEq/L (98-107); Ethanol < 10 mg/dL (Less than 10); Glucose 103 mg/dL (70-105); Osmolality,Calculated 286 (280-300); Potassium 3.9 mEq/L (3.5-5.1); Salicylate < 2.5 mg/dL (15.0-30.0); Sodium 136 mEq/L (136-145); eGFR For African Americans > 60 (> 60); eGFR For Non-African Americans > 60 (> 60)
[2019-07-07] MEDS ORDERED: MOM Conc 10 ML UD.LIQ PO PRN (05:10)
[2019-07-07] MEDS ORDERED: hydrOXYzine pamoate 25 MG CAPSULE PO PRN (05:10)
[2019-07-07] MEDS ORDERED: Acetaminophen 325 MG TABLET PO PRN (05:10)
[2019-07-07] MEDS ORDERED: QUEtiapine Fumarate 25 MG TABLET PO PRN (05:10)
[2019-07-07] MEDS ORDERED: Mag Hydrox/Al Hydrox/Simeth 30 ML UDC PO PRN (05:10)
[2019-07-07] MEDS ORDERED: *HR* LORazepam 2 MG/ML VIAL IM PRN (05:10)
[2019-07-07] MEDS ORDERED: Haloperidol Lactate 5 MG/ML VIAL IM PRN (05:10)
[2019-07-07] MEDS ORDERED: *HR* LORazepam 1 MG TABLET PO PRN (05:10)
[2019-07-07] MEDS: BuPROPion XL (24 HR) 150 MG TABLET PO SCH (11:37)
[2019-07-07] MEDS: Lithium Carbonate 300 MG CAPSULE PO SCH ×2 (11:37→21:05)
[2019-07-07] MEDS: Nicotine 2 MG GUM BC PRN (13:04)
[2019-07-08] MEDS: BuPROPion XL (24 HR) 150 MG TABLET PO SCH (08:44)
[2019-07-08] MEDS: Lithium Carbonate 300 MG CAPSULE PO SCH ×2 (08:44→21:17)
[2019-07-08] MEDS: Nicotine 2 MG GUM BC PRN (08:46)
[2019-07-09] MEDS: Lithium Carbonate 300 MG CAPSULE PO SCH (09:48)
[2019-07-09] MEDS: BuPROPion XL (24 HR) 150 MG TABLET PO SCH (09:49)
[2019-07-09] MEDS: Nicotine 2 MG GUM BC PRN (10:19)
[2019-07-09 10:23] VITALS: BP 114/80
== END 2019-07-09 13:30 | disposition home or self-care (01) | DRG 885 ==
LOC: EMEROOARM 02:10 → 1ANU 02:10
PROVIDERS: ADMIT Psychiatry & Neurology Psychiatry; ATTEND Psychiatry & Neurology Psychiatry

== ENCOUNTER 2019-11-16 05:16 | Inpatient (IN) ==
[2019-11-16 05:39] LABS: Bilirubin,Urine Small (Negative); Blood,Urine Negative (Negative); Clarity,Urine Clear (Clear); Color,Urine Dark Yellow (Yellow); Glucose,Urine (UA) Normal (Normal); Ketones,Urine 15 mg/dL (Negative); Leukocyte Esterase,Urine Negative (Negative); Nitrite,Urine Negative (Negative); Protein,Urine Negative (Neg-Trace); Specific Gravity,Urine > 1.030 (1.010-1.025); Urobilinogen,Urine Normal (Normal)
[2019-11-16 05:44] LABS: Basophils # 0.1 K/mcL (0.0-0.2); Basophils % 0.7 %; Eosinophils # 0.2 K/mcL (0.0-0.6); Eosinophils % 2.9 %; Hemoglobin 15.7 g/dL (12.9-16.9); Immature Granulocytes % 0.5 % (0-4); Lymphocytes # 2.5 K/mcL (0.6-4.6); Lymphocytes % 33.7 %; Mean Corpuscular HGB Conc 33.4 g/dL (31.6-35.5); Mean Corpuscular Hemoglobin 28.3 pg (28.0-33.3); Mean Corpuscular Volume 84.7 fL (83.0-100.0); Mean Platelet Volume 8.8 fL (9.4-12.4); Monocytes # 0.7 K/mcL (0.0-1.3); Monocytes % 9.6 %; Neutrophils # 3.9 K/mcL (1.6-8.9); Platelet Count 246 K/mcL (140-400); Red Blood Count 5.55 M/mcL (4.19-5.50); Red Cell Distribution Width 12.5 % (11.5-14.5); Segmented Neutrophils % 52.6 %; White Blood Count 7.5 K/mcL (4.3-11.1)
[2019-11-16 06:07] LABS: Acetaminophen < 10 mcg/mL (10-20); BUN/Creatinine Ratio 21 (6-26); Blood Urea Nitrogen 17 mg/dL (6-20); Calcium 9.5 mg/dL (8.6-10.3); Carbon Dioxide 23 mEq/L (23-29); Chloride 105 mEq/L (98-107); Ethanol < 10 mg/dL (Less than 10); Glucose 97 mg/dL (70-105); Osmolality,Calculated 283 (280-300); Potassium 3.8 mEq/L (3.5-5.1); Salicylate < 2.5 mg/dL (15.0-30.0); Sodium 136 mEq/L (136-145); eGFR For African Americans > 60 (> 60); eGFR For Non-African Americans > 60 (> 60)
[2019-11-16 06:10] LABS: Amphetamine Screen,Urine Negative ng/mL (Cutoff=1000); Barbiturate Screen,Urine Negative ng/mL (Cutoff=200); Benzodiazepines Screen,Urine Negative ng/mL (Cutoff=200); Cannabinoid Screen,Urine Negative ng/mL (Cutoff = 50); Cocaine Screen,Urine Negative ng/mL (Cutoff= 300); Opiate Screen,Urine Negative ng/mL (Cutoff=300); Phencyclidine Screen,Urine Negative ng/mL (Cutoff=25)
[2019-11-16] MEDS ORDERED: Mag Hydrox/Al Hydrox/Simeth 30 ML UDC PO PRN (08:29)
[2019-11-16] MEDS ORDERED: MOM Conc 10 ML UD.LIQ PO PRN (08:29)
[2019-11-16] MEDS ORDERED: Haloperidol Lactate 5 MG/ML VIAL IM PRN (08:29)
[2019-11-16] MEDS ORDERED: haloperidoL 5 MG TABLET PO PRN (08:29)
[2019-11-16] MEDS ORDERED: *HR* LORazepam 2 MG/ML VIAL IM PRN (08:29)
[2019-11-16] MEDS ORDERED: *HR* LORazepam 1 MG TABLET PO PRN (08:29)
[2019-11-16] MEDS ORDERED: Vitamin B Complex/Vit C/Vit E 1 EACH TABLET PO SCH (09:00)
[2019-11-16] MEDS: Acetaminophen 325 MG TABLET PO PRN (10:49)
[2019-11-16] MEDS: hydrOXYzine pamoate 25 MG CAPSULE PO PRN ×2 (10:49→22:23)
[2019-11-16] MEDS: Lithium Carbonate ER 300 MG TABLET.ER PO SCH ×2 (10:50→22:23)
[2019-11-16] MEDS: BuPROPion XL (24 HR) 150 MG TABLET PO SCH (10:51)
[2019-11-16] MEDS: Nicotine 2 MG GUM BC PRN ×2 (13:31→19:48)
[2019-11-16] MEDS: traZODone 50 MG TABLET PO PRN (22:23)
[2019-11-17] MEDS: Lithium Carbonate ER 300 MG TABLET.ER PO SCH ×2 (08:42→21:39)
[2019-11-17] MEDS: BuPROPion XL (24 HR) 150 MG TABLET PO SCH (08:43)
[2019-11-17] MEDS: Nicotine 2 MG GUM BC PRN ×2 (12:56→15:28)
[2019-11-17] MEDS: traZODone 50 MG TABLET PO PRN (21:39)
[2019-11-17] MEDS: hydrOXYzine pamoate 25 MG CAPSULE PO PRN (21:39)
[2019-11-18] MEDS: BuPROPion XL (24 HR) 150 MG TABLET PO SCH (09:06)
[2019-11-18] MEDS: Lithium Carbonate ER 300 MG TABLET.ER PO SCH ×2 (09:06→21:13)
[2019-11-18] MEDS: Nicotine 2 MG GUM BC PRN ×3 (09:33→18:30)
[2019-11-18] MEDS: hydrOXYzine pamoate 25 MG CAPSULE PO PRN (13:09)
[2019-11-18] MEDS: Acetaminophen 325 MG TABLET PO PRN (18:30)
[2019-11-18] MEDS: traZODone 50 MG TABLET PO PRN (21:56)
[2019-11-19] MEDS: Lithium Carbonate ER 300 MG TABLET.ER PO SCH ×2 (09:22→21:39)
[2019-11-19] MEDS: BuPROPion XL (24 HR) 150 MG TABLET PO SCH (09:22)
[2019-11-19] MEDS: Nicotine 2 MG GUM BC PRN ×3 (09:42→17:38)
[2019-11-19] MEDS: hydrOXYzine pamoate 25 MG CAPSULE PO PRN (12:33)
[2019-11-19] MEDS: traZODone 50 MG TABLET PO PRN (21:39)
[2019-11-20] MEDS: Lithium Carbonate ER 300 MG TABLET.ER PO SCH (09:32)
[2019-11-20] MEDS: BuPROPion XL (24 HR) 150 MG TABLET PO SCH (09:32)
[2019-11-20 09:37] VITALS: BP 123/86
== END 2019-11-20 10:20 | disposition home or self-care (01) | DRG 753 ==
LOC: EMEROOARM 05:16 → 1ANU 08:26
PROVIDERS: ADMIT Psychiatry & Neurology Psychiatry; ATTEND Psychiatry & Neurology Psychiatry

== ENCOUNTER 2020-10-09 20:00 | Inpatient (IN) ==
[2020-10-09 20:24] LABS: Bilirubin,Urine Negative (Negative); Blood,Urine Negative (Negative); Clarity,Urine Clear (Clear); Color,Urine Light-Yellow (Yellow); Glucose,Urine (UA) Normal (Normal); Ketones,Urine Negative (Negative); Leukocyte Esterase,Urine Negative (Negative); Nitrite,Urine Negative (Negative); Protein,Urine Negative (Neg-Trace); Urobilinogen,Urine Normal (Normal)
[2020-10-09 20:32] LABS: Amphetamine Screen,Urine Negative ng/mL (Cutoff=1000); Barbiturate Screen,Urine Negative ng/mL (Cutoff=200); Benzodiazepines Screen,Urine Negative ng/mL (Cutoff=200); Cannabinoid Screen,Urine Negative ng/mL (Cutoff = 50); Cocaine Screen,Urine Negative ng/mL (Cutoff= 300); Opiate Screen,Urine Negative ng/mL (Cutoff=300); Phencyclidine Screen,Urine Negative ng/mL (Cutoff=25)
[2020-10-09 20:41] LABS: Basophils # 0.1 K/mcL (0.0-0.2); Basophils % 0.8 %; Eosinophils # 0.2 K/mcL (0.0-0.6); Eosinophils % 2.4 %; Hematocrit 43.7 % (37.5-50.1); Hemoglobin 14.7 g/dL (12.9-16.9); Lymphocytes # 1.6 K/mcL (0.6-4.6); Lymphocytes % 22.1 %; Mean Corpuscular HGB Conc 33.6 g/dL (31.6-35.5); Mean Corpuscular Hemoglobin 29.1 pg (28.0-33.3); Mean Corpuscular Volume 86.4 fL (83.0-100.0); Mean Platelet Volume 8.7 fL (9.4-12.4); Monocytes # 0.7 K/mcL (0.0-1.3); Monocytes % 9.6 %; Neutrophils # 4.6 K/mcL (1.6-8.9); Platelet Count 230 K/mcL (140-400); Red Blood Count 5.06 M/mcL (4.19-5.50); Red Cell Distribution Width 12.5 % (11.5-14.5); Segmented Neutrophils % 64.1 %; White Blood Count 7.2 K/mcL (4.3-11.1)
[2020-10-09 20:58] LABS: Acetaminophen < 10 mcg/mL (10-20); BUN/Creatinine Ratio 14 (6-26); Blood Urea Nitrogen 11 mg/dL (6-20); Calcium 9.4 mg/dL (8.6-10.3); Carbon Dioxide 21 mEq/L (23-29); Chloride 108 mEq/L (98-107); Ethanol < 10 mg/dL (Less than 10); Glucose 106 mg/dL (70-105); Osmolality,Calculated 284 (280-300); Potassium 3.8 mEq/L (3.5-5.1); Salicylate < 2.5 mg/dL (15.0-30.0); Sodium 137 mEq/L (136-145); eGFR For African Americans > 60 (> 60); eGFR For Non-African Americans > 60 (> 60)
[2020-10-09] MEDS ORDERED: Lithium Carbonate ER 450 MG TABLET.ER PO SCH (23:45)
[2020-10-09] MEDS ORDERED: risperiDONE 1 MG TABLET PO SCH (23:45)
[2020-10-09] MEDS ORDERED: Gabapentin 300 MG CAPSULE PO SCH (23:45)
[2020-10-09] MEDS ORDERED: hydrOXYzine pamoate 25 MG CAPSULE PO PRN (23:48)
[2020-10-09] MEDS ORDERED: traZODone 50 MG TABLET PO PRN (23:49)
[2020-10-10] MEDS: Lithium Carbonate ER 450 MG TABLET.ER PO SCH ×3 (01:59→20:43)
[2020-10-10] MEDS: risperiDONE 1 MG TABLET PO SCH ×3 (01:59→20:44)
[2020-10-10] MEDS: Gabapentin 300 MG CAPSULE PO SCH ×4 (01:59→20:44)
[2020-10-10] MEDS: BuPROPion XL (24 HR) 150 MG TABLET PO SCH (09:54)
[2020-10-10] MEDS: Nicotine 2 MG GUM BC PRN (13:40)
[2020-10-10] MEDS ORDERED: traZODone 50 MG TABLET PO PRN (15:39)
[2020-10-10] MEDS ORDERED: Acetaminophen 325 MG TABLET PO PRN (15:53)
[2020-10-10] MEDS ORDERED: Haloperidol Lactate 5 MG/ML VIAL IM PRN (15:53)
[2020-10-10] MEDS ORDERED: haloperidoL 5 MG TABLET PO PRN (15:53)
[2020-10-10] MEDS ORDERED: MOM Conc 10 ML UD.LIQ PO PRN (15:53)
[2020-10-10] MEDS ORDERED: *HR* LORazepam 1 MG TABLET PO PRN (15:53)
[2020-10-11] MEDS: BuPROPion XL (24 HR) 150 MG TABLET PO SCH (09:03)
[2020-10-11] MEDS: risperiDONE 1 MG TABLET PO SCH (09:07)
[2020-10-11] MEDS: Lithium Carbonate ER 450 MG TABLET.ER PO SCH (09:07)
[2020-10-11 09:30] VITALS: BP 126/83
[2020-10-11] MEDS: Nicotine 2 MG GUM BC PRN ×2 (11:04→16:00)
[2020-10-11] MEDS: Gabapentin 300 MG CAPSULE PO SCH ×2 (11:45→14:55)
== END 2020-10-11 18:05 | disposition home or self-care (01) | DRG 753 ==
LOC: EMEROOARM 20:00 → 1ANU 20:00
PROVIDERS: ADMIT Student in an Organized Health Care Education/Training Program; ATTEND Student in an Organized Health Care Education/Training Program

== ENCOUNTER 2021-04-08 22:05 | Inpatient (IN) ==
[2021-04-08 22:45] LABS: Bilirubin,Urine Negative (Negative); Blood,Urine Negative (Negative); Clarity,Urine Clear (Clear); Color,Urine Light-Yellow (Yellow); Glucose,Urine (UA) Normal (Normal); Ketones,Urine Negative (Negative); Leukocyte Esterase,Urine Negative (Negative); Nitrite,Urine Negative (Negative); Protein,Urine Trace mg/dL (Neg-Trace); Specific Gravity,Urine 1.017 (1.010-1.025); Urobilinogen,Urine Normal (Normal)
[2021-04-08 22:47] LABS: Basophils # 0.1 K/mcL (0.0-0.2); Basophils % 0.5 %; Eosinophils # 0.3 K/mcL (0.0-0.6); Eosinophils % 2.7 %; Hematocrit 45.4 % (37.5-50.1); Hemoglobin 15.3 g/dL (12.9-16.9); Lymphocytes # 2.5 K/mcL (0.6-4.6); Lymphocytes % 22.8 %; Mean Corpuscular HGB Conc 33.7 g/dL (31.6-35.5); Mean Corpuscular Hemoglobin 28.9 pg (28.0-33.3); Mean Corpuscular Volume 85.7 fL (83.0-100.0); Mean Platelet Volume 9.2 fL (9.4-12.4); Monocytes # 0.9 K/mcL (0.0-1.3); Monocytes % 7.9 %; Neutrophils # 7.2 K/mcL (1.6-8.9); Platelet Count 256 K/mcL (140-400); Red Cell Distribution Width 12.4 % (11.5-14.5); Segmented Neutrophils % 65.1 %; White Blood Count 11.1 K/mcL (4.3-11.1)
[2021-04-08 22:55] LABS: Amphetamine Screen,Urine Negative ng/mL (Cutoff=1000); Barbiturate Screen,Urine Negative ng/mL (Cutoff=200); Benzodiazepines Screen,Urine Negative ng/mL (Cutoff=200); Cannabinoid Screen,Urine Negative ng/mL (Cutoff = 50); Cocaine Screen,Urine Negative ng/mL (Cutoff= 300); Opiate Screen,Urine Negative ng/mL (Cutoff=300); Phencyclidine Screen,Urine Negative ng/mL (Cutoff=25)
[2021-04-08 23:11] LABS: Acetaminophen < 10 mcg/mL (10-20); BUN/Creatinine Ratio 15 (6-26); Blood Urea Nitrogen 14 mg/dL (6-20); Calcium 9.5 mg/dL (8.6-10.3); Carbon Dioxide 24 mEq/L (23-29); Chloride 103 mEq/L (98-107); Ethanol < 10 mg/dL (Less than 10); Glucose 101 mg/dL (70-105); Osmolality,Calculated 281 (280-300); Potassium 3.7 mEq/L (3.5-5.1); Salicylate < 2.5 mg/dL (15.0-30.0); Sodium 135 mEq/L (136-145); eGFR For African Americans > 60 (> 60); eGFR For Non-African Americans > 60 (> 60)
[2021-04-09 02:20] LABS: Influenza A PCR Negative (Negative); Influenza B PCR Negative (Negative); Resp. Syncytial Virus PCR Negative (Negative)
[2021-04-09 02:22] LABS: SARS-CoV-2 by PCR (In House) Negative (Negative)
[2021-04-09] MEDS ORDERED: Haloperidol Lactate 5 MG/ML VIAL IM PRN (02:23)
[2021-04-09] MEDS ORDERED: *HR* LORazepam 1 MG TABLET PO PRN (02:23)
[2021-04-09] MEDS ORDERED: Acetaminophen 325 MG TABLET PO PRN (02:23)
[2021-04-09] MEDS ORDERED: *HR* LORazepam 2 MG/ML VIAL IM PRN (02:23)
[2021-04-09] MEDS ORDERED: haloperidoL 5 MG TABLET PO PRN (02:23)
[2021-04-09] MEDS ORDERED: Ibuprofen 400 MG TABLET PO PRN (02:23)
[2021-04-09] MEDS: BuPROPion XL (24 HR) 150 MG TABLET PO SCH (08:31)
[2021-04-09] MEDS: Gabapentin 400 MG CAPSULE PO SCH ×3 (08:32→21:47)
[2021-04-09] MEDS: risperiDONE 1 MG TABLET PO SCH ×2 (08:32→21:48)
[2021-04-09] MEDS: Lithium Carbonate ER 450 MG TABLET.ER PO SCH ×2 (08:32→21:47)
[2021-04-09] MEDS: Nicotine 2 MG GUM BC PRN ×2 (11:03→17:26)
[2021-04-09] MEDS ORDERED: Mag Hydrox/Al Hydrox/Simeth 30 ML UDC PO PRN (13:09)
[2021-04-09] MEDS: hydrOXYzine pamoate 25 MG CAPSULE PO PRN ×2 (13:30→21:47)
[2021-04-09] MEDS: traZODone 50 MG TABLET PO PRN (21:47)
[2021-04-10] MEDS: Gabapentin 400 MG CAPSULE PO SCH ×3 (08:53→20:43)
[2021-04-10] MEDS: risperiDONE 1 MG TABLET PO SCH ×2 (08:53→20:42)
[2021-04-10] MEDS: BuPROPion XL (24 HR) 150 MG TABLET PO SCH (08:54)
[2021-04-10] MEDS: Lithium Carbonate ER 450 MG TABLET.ER PO SCH ×2 (08:54→20:43)
[2021-04-10 09:37] VITALS: O2SAT 96
[2021-04-10] MEDS: Nicotine 2 MG GUM BC PRN ×2 (10:59→15:55)
[2021-04-10] MEDS: traZODone 50 MG TABLET PO PRN (20:45)
[2021-04-11] MEDS: Gabapentin 400 MG CAPSULE PO SCH ×2 (08:21→14:01)
[2021-04-11] MEDS: Lithium Carbonate ER 450 MG TABLET.ER PO SCH (08:21)
[2021-04-11] MEDS: risperiDONE 1 MG TABLET PO SCH (08:22)
[2021-04-11] MEDS: BuPROPion XL (24 HR) 150 MG TABLET PO SCH (08:22)
[2021-04-11 08:36] VITALS: BP 138/89; PULSE 97; TEMP 98.4
[2021-04-11] MEDS: Nicotine 2 MG GUM BC PRN ×2 (09:21→14:08)
[2021-04-11] MEDS ORDERED: FLU Vac QV 21-22 (6Month+)/PF 0.5 ML SYRINGE IM ONE (09:36)
== END 2021-04-11 17:50 | disposition home or self-care (01) | DRG 753 ==
LOC: EMEROOARM 22:05 → 1ANU 04-09 02:34
PROVIDERS: ADMIT Psychiatry & Neurology Psychiatry; ATTEND Psychiatry & Neurology Psychiatry

== ENCOUNTER 2021-09-23 12:45 | Inpatient (IN) ==
[2021-09-23 13:28] LABS: Basophils # 0.1 K/mcL (0.0-0.2); Eosinophils # 0.3 K/mcL (0.0-0.6); Eosinophils % 2.4 %; Hematocrit 47.7 % (37.5-50.1); Hemoglobin 16.2 g/dL (12.9-16.9); Immature Granulocytes % 2.9 % (0-4); Lymphocytes # 2.1 K/mcL (0.6-4.6); Mean Corpuscular Hemoglobin 29.2 pg (28.0-33.3); Mean Corpuscular Volume 85.9 fL (83.0-100.0); Monocytes # 0.6 K/mcL (0.0-1.3); Monocytes % 5.4 %; Neutrophils # 7.7 K/mcL (1.6-8.9); Platelet Count 327 K/mcL (140-400); Red Blood Count 5.55 M/mcL (4.19-5.50); Red Cell Distribution Width 13.1 % (11.5-14.5); Segmented Neutrophils % 69.3 %; White Blood Count 11.1 K/mcL (4.3-11.1)
[2021-09-23 13:45] LABS: Amorphous Sediment,Urine Few per hpf (None-Few); Bilirubin,Urine Negative (Negative); Blood,Urine Negative (Negative); Clarity,Urine Ex.Turbid (Clear); Color,Urine Yellow (Yellow); Glucose,Urine (UA) Normal (Normal); Ketones,Urine Negative (Negative); Leukocyte Esterase,Urine Negative (Negative); Mucus,Urine Few per lpf (None-Few); Nitrite,Urine Negative (Negative); Protein,Urine Trace mg/dL (Neg-Trace); Specific Gravity,Urine 1.027 (1.010-1.025); Urobilinogen,Urine Normal (Normal); WBC,Urine 0-3 per hpf (0-3)
[2021-09-23 13:48] LABS: Acetaminophen < 10 mcg/mL (10-20); BUN/Creatinine Ratio 20 (6-26); Blood Urea Nitrogen 19 mg/dL (6-20); Calcium 9.9 mg/dL (8.6-10.3); Carbon Dioxide 25 mEq/L (23-29); Chloride 107 mEq/L (98-107); Chol/HDL Ratio 3.7 (0-4.9); Cholesterol 161 mg/dL (< 200); Ethanol < 10 mg/dL (Less than 10); Glucose 111 mg/dL (70-105); HDL Cholesterol 43 mg/dL (40-59); LDL Cholesterol,Calculated 87 mg/dL (< 100); Osmolality,Calculated 289 (280-300); Potassium 4.2 mEq/L (3.5-5.1); Salicylate < 2.5 mg/dL (15.0-30.0); Sodium 138 mEq/L (136-145); Triglycerides 157 mg/dL (< 150); eGFR For African Americans > 60 (> 60); eGFR For Non-African Americans > 60 (> 60)
[2021-09-23 13:58] LABS: Amphetamine Screen,Urine Negative ng/mL (Cutoff=1000); Barbiturate Screen,Urine Negative ng/mL (Cutoff=200); Benzodiazepines Screen,Urine Negative ng/mL (Cutoff=200); Cannabinoid Screen,Urine Positive ng/mL (Cutoff = 50); Cocaine Screen,Urine Negative ng/mL (Cutoff= 300); Opiate Screen,Urine Negative ng/mL (Cutoff=300); Phencyclidine Screen,Urine Negative ng/mL (Cutoff=25)
[2021-09-23 15:31] LABS: Influenza A PCR Negative (Negative); Influenza B PCR Negative (Negative); Resp. Syncytial Virus PCR Negative (Negative)
[2021-09-23 15:41] LABS: SARS-CoV-2 by PCR (In House) Negative (Negative)
[2021-09-23] MEDS ORDERED: haloperidoL 5 MG TABLET PO PRN (16:09)
[2021-09-23] MEDS ORDERED: *HR* LORazepam 2 MG/ML VIAL IM PRN (16:09)
[2021-09-23] MEDS ORDERED: Haloperidol Lactate 5 MG/ML VIAL IM PRN (16:09)
[2021-09-23] MEDS ORDERED: *HR* LORazepam 1 MG TABLET PO PRN (16:09)
[2021-09-23] MEDS ORDERED: Ibuprofen 400 MG TABLET PO PRN (16:09)
[2021-09-23] MEDS ORDERED: traZODone 50 MG TABLET PO PRN (16:09)
[2021-09-23] MEDS ORDERED: Acetaminophen 325 MG TABLET PO PRN (18:46)
[2021-09-23] MEDS: Nicotine 2 MG GUM BC PRN (19:01)
[2021-09-23] MEDS: hydrOXYzine pamoate 25 MG CAPSULE PO PRN (20:48)
[2021-09-23] MEDS: Lithium Carbonate 300 MG CAPSULE PO SCH (20:48)
[2021-09-24] MEDS ORDERED: MOM Conc 10 ML UD.LIQ PO PRN (08:56)
[2021-09-24] MEDS ORDERED: Mag Hydrox/Al Hydrox/Simeth 30 ML UDC PO PRN (08:56)
[2021-09-24] MEDS ORDERED: Nicotine 14 MG PATCH.TD24 TD SCH (09:00)
[2021-09-24] MEDS: Nicotine 2 MG GUM BC PRN ×3 (11:36→19:51)
[2021-09-24] MEDS ORDERED: QUEtiapine Fumarate 25 MG TABLET PO PRN (12:14)
[2021-09-24] MEDS: clonazePAM 1 MG TABLET PO SCH (14:18)
[2021-09-24] MEDS: risperiDONE 1 MG TABLET PO SCH ×2 (14:19→21:12)
[2021-09-24] MEDS: hydrOXYzine pamoate 25 MG CAPSULE PO PRN (14:19)
[2021-09-24] MEDS: Gabapentin 400 MG CAPSULE PO SCH ×2 (15:48→21:11)
[2021-09-24] MEDS ORDERED: risperiDONE 1 MG TABLET PO SCH (21:00)
[2021-09-24] MEDS: Lithium Carbonate 300 MG CAPSULE PO SCH (21:12)
[2021-09-25] MEDS: Lithium Carbonate 300 MG CAPSULE PO SCH ×2 (08:33→20:53)
[2021-09-25] MEDS: risperiDONE 1 MG TABLET PO SCH ×2 (08:33→20:53)
[2021-09-25] MEDS: Gabapentin 400 MG CAPSULE PO SCH ×3 (08:33→20:53)
[2021-09-25] MEDS: clonazePAM 1 MG TABLET PO SCH (08:33)
[2021-09-25] MEDS ORDERED: clonazePAM 1 MG TABLET PO SCH (09:00)
[2021-09-25] MEDS: Nicotine 2 MG GUM BC PRN ×2 (09:53→14:28)
[2021-09-25] MEDS: hydrOXYzine pamoate 25 MG CAPSULE PO PRN (20:52)
[2021-09-26] MEDS: Gabapentin 400 MG CAPSULE PO SCH ×2 (08:19→16:16)
[2021-09-26] MEDS: risperiDONE 1 MG TABLET PO SCH (08:20)
[2021-09-26] MEDS: Lithium Carbonate 300 MG CAPSULE PO SCH (08:20)
[2021-09-26 08:36] VITALS: BP 129/92; PULSE 89; TEMP 97.4; O2SAT 92
[2021-09-26] MEDS: clonazePAM 1 MG TABLET PO SCH (09:18)
[2021-09-26] MEDS: Nicotine 2 MG GUM BC PRN (12:18)
== END 2021-09-26 16:47 | disposition home or self-care (01) | DRG 885 ==
LOC: EMEROOARM 12:45 → 1ANU 16:00
PROVIDERS: ADMIT Psychiatry & Neurology Psychiatry; ATTEND Psychiatry & Neurology Psychiatry

== ENCOUNTER 2022-02-07 20:52 | Inpatient (IN) ==
[2022-02-07 21:38] LABS: Bilirubin,Urine Negative (Negative); Blood,Urine Negative (Negative); Clarity,Urine Clear (Clear); Color,Urine Yellow (Yellow); Glucose,Urine (UA) Normal (Normal); Hyaline Casts,Urine Many per lpf (None Seen); Ketones,Urine Trace mg/dL (Negative); Leukocyte Esterase,Urine Negative (Negative); Mucus,Urine Few per lpf (None-Few); Nitrite,Urine Negative (Negative); Protein,Urine 30 mg/dL (Neg-Trace); RBC,Urine 0-3 per hpf (0-3); Urobilinogen,Urine Normal (Normal); WBC,Urine 0-3 per hpf (0-3)
[2022-02-07 21:42] LABS: Basophils # 0.1 K/mcL (0.0-0.2); Basophils % 0.9 %; Eosinophils # 0.3 K/mcL (0.0-0.6); Eosinophils % 3.3 %; Hematocrit 47.9 % (37.5-50.1); Hemoglobin 16.1 g/dL (12.9-16.9); Immature Granulocytes % 1.3 % (0-4); Lymphocytes # 2.3 K/mcL (0.6-4.6); Mean Corpuscular HGB Conc 33.6 g/dL (31.6-35.5); Mean Corpuscular Volume 86.2 fL (83.0-100.0); Mean Platelet Volume 9.1 fL (9.4-12.4); Monocytes # 0.8 K/mcL (0.0-1.3); Monocytes % 7.9 %; Platelet Count 254 K/mcL (140-400); Red Blood Count 5.56 M/mcL (4.19-5.50); Red Cell Distribution Width 12.7 % (11.5-14.5); Segmented Neutrophils % 62.6 %; White Blood Count 9.5 K/mcL (4.3-11.1)
[2022-02-07 21:46] LABS: Amphetamine Screen,Urine Negative ng/mL (Cutoff=1000); Barbiturate Screen,Urine Negative ng/mL (Cutoff=200); Benzodiazepines Screen,Urine Negative ng/mL (Cutoff=200); Cannabinoid Screen,Urine Positive ng/mL (Cutoff = 50); Cocaine Screen,Urine Negative ng/mL (Cutoff= 300); Opiate Screen,Urine Negative ng/mL (Cutoff=300); Phencyclidine Screen,Urine Negative ng/mL (Cutoff=25)
[2022-02-07 21:53] LABS: Acetaminophen < 10 mcg/mL (10-20); BUN/Creatinine Ratio 17 (6-26); Blood Urea Nitrogen 19 mg/dL (6-20); Calcium 9.8 mg/dL (8.6-10.3); Carbon Dioxide 23 mEq/L (23-29); Chloride 106 mEq/L (98-107); Ethanol < 10 mg/dL (Less than 10); Glucose 115 mg/dL (70-105); Osmolality,Calculated 285 (280-300); Potassium 3.9 mEq/L (3.5-5.1); Salicylate < 2.5 mg/dL (15.0-30.0); Sodium 136 mEq/L (136-145)
[2022-02-08 01:22] LABS: Influenza A PCR Negative (Negative); Influenza B PCR Negative (Negative); Resp. Syncytial Virus PCR Negative (Negative); SARS-CoV-2 by PCR (In House) Negative (Negative)
[2022-02-08] MEDS ORDERED: *HR* LORazepam 1 MG TABLET PO PRN (02:32)
[2022-02-08] MEDS ORDERED: haloperidoL 5 MG TABLET PO PRN (02:32)
[2022-02-08] MEDS ORDERED: Haloperidol Lactate 5 MG/ML VIAL IM PRN (02:32)
[2022-02-08] MEDS ORDERED: *HR* LORazepam 2 MG/ML VIAL IM PRN (02:32)
[2022-02-08] MEDS ORDERED: hydrOXYzine pamoate 25 MG CAPSULE PO PRN (02:32)
[2022-02-08] MEDS: Acetaminophen 325 MG TABLET PO PRN (05:10)
[2022-02-08] MEDS: Nicotine 2 MG GUM BC PRN ×2 (13:01→19:43)
[2022-02-08] MEDS: risperiDONE 1 MG TABLET PO SCH (21:01)
[2022-02-08] MEDS: Lithium Carbonate ER 300 MG TABLET.ER PO SCH (21:01)
[2022-02-09] MEDS: Acetaminophen 325 MG TABLET PO PRN (02:10)
[2022-02-09] MEDS: risperiDONE 1 MG TABLET PO SCH ×2 (08:36→20:10)
[2022-02-09] MEDS: Nicotine 2 MG GUM BC PRN ×3 (08:39→20:08)
[2022-02-09] MEDS ORDERED: clonazePAM 1 MG TABLET PO SCH (09:00)
[2022-02-09] MEDS: clonazePAM 1 MG TABLET PO PRN (13:30)
[2022-02-09] MEDS: Lithium Carbonate ER 300 MG TABLET.ER PO SCH (20:09)
[2022-02-09] MEDS: QUEtiapine Fumarate 25 MG TABLET PO PRN (20:10)
[2022-02-10] MEDS: risperiDONE 1 MG TABLET PO SCH ×2 (08:34→21:08)
[2022-02-10] MEDS: Nicotine 2 MG GUM BC PRN ×3 (08:37→19:04)
[2022-02-10] MEDS: clonazePAM 1 MG TABLET PO PRN (15:43)
[2022-02-10] MEDS: QUEtiapine Fumarate 25 MG TABLET PO PRN (21:08)
[2022-02-10] MEDS: Lithium Carbonate ER 300 MG TABLET.ER PO SCH (21:08)
[2022-02-11] MEDS: risperiDONE 1 MG TABLET PO SCH ×2 (08:39→21:30)
[2022-02-11] MEDS: Nicotine 2 MG GUM BC PRN ×3 (11:44→17:57)
[2022-02-11 20:15] VITALS: O2SAT 97
[2022-02-11] MEDS: Lithium Carbonate ER 300 MG TABLET.ER PO SCH (21:29)
[2022-02-11] MEDS: QUEtiapine Fumarate 25 MG TABLET PO PRN (21:30)
[2022-02-12 08:21] VITALS: BP 149/88; PULSE 79; TEMP 97.3
[2022-02-12] MEDS: risperiDONE 1 MG TABLET PO SCH (08:43)
[2022-02-12] MEDS: Nicotine 2 MG GUM BC PRN ×2 (08:44→12:43)
== END 2022-02-12 14:06 | disposition home or self-care (01) | DRG 885 ==
LOC: EMEROOARM 20:52 → 1ANU 02-08 01:50
PROVIDERS: ADMIT Psychiatry & Neurology Psychiatry; ATTEND Psychiatry & Neurology Psychiatry